=== PATIENT | female | born 1960 | race Hispanic/Latino ===

== ENCOUNTER 2019-03-21 05:49 | Inpatient (IN) | payer OTHER, MEDICARE ==
[2019-03-17 11:00] VITALS: BP 168/94
[2019-03-17 11:05] LABS: BASOPHILS % (AUTO) 0.9 % (0.0-5.0); EOSINOPHILS % (AUTO) 0.9 % (0.0-8.0); HEMATOCRIT 48.1 % (36-48); LYMPHOCYTES % (AUTO) 24.5 % (21.0-51.0); MEAN CORPUSCULAR HEMOGLOBIN 27.3 pg (27.0-33.0); MEAN CORPUSCULAR HGB CONC 33.4 g/dL (32.0-36.0); MEAN CORPUSCULAR VOLUME 81.6 fL (79-99); MONOCYTES % (AUTO) 5.7 % (3.0-13.0); PLATELET COUNT (AUTO) 373 K/uL (130-400); RED CELL DISTRIBUTION WIDTH 13.7 % (11.0-15.5); WHITE BLOOD COUNT (AUTO) 11.3 K/uL (4.8-10.8)
[2019-03-17 11:34] LABS: POTASSIUM 4.6 mmol/L (3.5-5.1)
--- NOTE | 2019-03-20 10:14 | NUR ---
LABS INFORMED WBC TO DR. SHAYNE BERRY ASST. SHE WILL INFORM DR. BELLA
--- NOTE | 2019-03-20 10:27 | NUR ---
WBC KRISTI ON PHONE. PER DR. BELLA, REDRAW CBC ON AM OF PROCEDURE.
[2019-03-21] VITALS (23 sets, daily range): BP systolic 129–168; BP diastolic 69–102
[~2019-03-21] VITALS: Ht 147.3 cm; Wt 68.9 kg
[~2019-03-21 05:49] MED LIST: AMLO10TA7 PO; AVENOVA TP; CHOL100040 PO; ENAL20TA PO; ESOM40CA54 PO; FAMO-136 PO; FLUT15.845 NS; FLUT1BLS IH; FLUT1DIS IH; HYDR12.54 PO; MELA1TAB8 PO; MONT10TA24 PO; OXYB5TAB15 PO; ROSU10TA28 PO; TIOT4MIS5 IH; TOPI100T37 PO; TRAM50TA4 PO
[2019-03-21] MEDS ORDERED: LACTATED RINGERS 1000ML 1,000 ML IV ONE (06:07)
[2019-03-21] MEDS ORDERED: CEFAZOLIN SODIUM 1 GM VIAL ONE (06:07)
[2019-03-21 06:25] LABS: HEMATOCRIT 44.2 % (36-48); MEAN CORPUSCULAR HEMOGLOBIN 27.7 pg (27.0-33.0); MEAN CORPUSCULAR HGB CONC 33.9 g/dL (32.0-36.0); MEAN CORPUSCULAR VOLUME 81.7 fL (79-99); NUCLEATED RED BLOOD CELLS 0.1 % (0.0-0.19); PLATELET COUNT (AUTO) 340 K/uL (130-400); RED BLOOD CELL COUNT(AUTO) 5.41 MIL/uL (4.00-5.50); RED CELL DISTRIBUTION WIDTH 13.4 % (11.0-15.5); WHITE BLOOD COUNT (AUTO) 10.6 K/uL (4.8-10.8)
[2019-03-21] MEDS: CEFAZOLIN SODIUM 1 GM VIAL IVP ONE ×2 (06:28→07:45)
[2019-03-21] MEDS ORDERED: SUCCINYLCHOLINE 200MG/10ML SYR ONE (07:01)
[2019-03-21] MEDS ORDERED: LIDOCAINE PF 2% 5ML ABBOJECT ONE (07:01)
[2019-03-21] MEDS ORDERED: PROPOFOL 10 MG/ML 20ML VIAL IV ONE (07:02)
[2019-03-21] MEDS ORDERED: MIDAZOLAM HCL 1 MG/ML 2ML VIAL ONE (07:02)
[2019-03-21] MEDS ORDERED: THROMBIN-JMI 20000 UNIT KIT TP ONE (07:02)
[2019-03-21] MEDS ORDERED: GLYCOPYRROLATE 1 MG/5 ML SYRINGE ONE (07:02)
[2019-03-21] MEDS ORDERED: BACITRACIN 50,000 UNIT VIAL ONE (07:02)
[2019-03-21] MEDS ORDERED: BUPIVACAINE/EPI/PF 0.5% 30ML VIAL IJ ONE (07:02)
[2019-03-21] MEDS ORDERED: DEXAMETHASONE SOD PHOSPHATE 10MG/ML 1ML VIAL ONE ×2 (07:02→07:07)
[2019-03-21] MEDS ORDERED: FENTANYL CITRATE PF 50 MCG/1 ML 2ML VIAL ONE ×3 (07:03→10:07)
[2019-03-21] MEDS ORDERED: ONDANSETRON HCL 4 MG/2 ML VIAL ONE (07:03)
[2019-03-21] MEDS ORDERED: ROCURONIUM 10MG/1ML SYR 10 MG/ML ML ONE (07:03)
[2019-03-21] MEDS ORDERED: NEOSTIGMINE 5MG/5ML SYR IV ONE (07:03)
[2019-03-21] MEDS ORDERED: MANNITOL 20% 500ML BAG 500 ML IV ONE (07:42)
[2019-03-21] MEDS ORDERED: METOCLOPRAMIDE 10 MG/2 ML VIAL ONE (09:17)
[2019-03-21] MEDS ORDERED: LIDOCAINE HCL 4% LTA SOL 4 ML VIAL ONE (09:17)
[2019-03-21] MEDS ORDERED: PEG15DRO4 OU (10:17)
[2019-03-21] MEDS ORDERED: ACET-66 PO (10:17)
[2019-03-21] MEDS ORDERED: ACETAMINOPHEN EXTRA STRENGTH 500 MG TABLET PO PRN (10:30)
[2019-03-21] MEDS ORDERED: PROMETHAZINE HCL 25 MG/ML 1ML AMPULE IM PRN (10:30)
[2019-03-21] MEDS ORDERED: MORPHINE SULFATE 2 MG/ML 1ML SYG IVP PRN (10:30)
[2019-03-21] MEDS ORDERED: SODIUM CHLORIDE 0.9% 10 ML VIAL IVP PRN (10:30)
[2019-03-21] MEDS: CEFAZOLIN SODIUM 1 GM VIAL IVP SCH ×2 (10:30→15:55)
[2019-03-21] MEDS: DEXAMETHASONE SOD PHOSPHATE 4 MG/ML 1ML VIAL IVP SCH ×3 (10:30→23:14)
[2019-03-21] MEDS: VITAMIN D3 PO SCH (10:36)
[2019-03-21] MEDS: PANTOPRAZOLE SODIUM 40 MG TABLET.DR PO SCH (10:37)
[2019-03-21] MEDS: HYDROCHLOROTHIAZIDE 25 MG TABLET PO SCH (10:38)
[2019-03-21] MEDS: ARTIFICAL TEARS SOL 15 ML OU SCH ×2 (10:39→20:49)
[2019-03-21] MEDS: FLUTICASONE PROPIONATE 50MCG/SPRAY 16 GM BOTTLE EN SCH (10:50)
[2019-03-21] MEDS: FAMOTIDINE 20MG TAB 20 MG TAB PO SCH ×2 (10:57→20:43)
[2019-03-21] MEDS: IPRATROPIUM/ALBUTEROL SULFATE 3 ML SOLUTION IH SCH ×3 (12:00→23:33)
[2019-03-21] MEDS ORDERED: IPRATROPIUM 0.5 MG/2.5 ML INH IH SCH (12:00)
[2019-03-21] MEDS: LACTATED RINGERS 1000ML 1,000 ML IV SCH ×2 (12:14→23:12)
[2019-03-21] MEDS: HYDROCODONE/ACETAMINOPHEN 5/325 MG TAB PO PRN ×3 (15:43→23:58)
[2019-03-21] MEDS: BUDESONIDE 0.5 MG/2 ML INH IH SCH (18:59)
[2019-03-21] MEDS: TRAMADOL HCL 50 MG TABLET PO SCH (20:44)
[2019-03-21] MEDS ORDERED: MELATONIN 1 MG PO SCH (21:00)
[2019-03-21] MEDS ORDERED: ATORVASTATIN CALCIUM 20 MG TABLET PO SCH (21:00)
[2019-03-21] MEDS ORDERED: MONTELUKAST SODIUM 10 MG TAB PO SCH (21:00)
[2019-03-21] MEDS ORDERED: ENALAPRIL MALEATE 10 MG TABLET PO SCH (21:00)
[2019-03-22 00:20] VITALS: BP 137/74
[2019-03-22 04:15] VITALS: BP 123/80
[2019-03-22] MEDS: DEXAMETHASONE SOD PHOSPHATE 4 MG/ML 1ML VIAL IVP SCH (04:57)
[2019-03-22] MEDS: IPRATROPIUM/ALBUTEROL SULFATE 3 ML SOLUTION IH SCH ×2 (06:51→11:18)
[2019-03-22] MEDS: HYDROCODONE/ACETAMINOPHEN 5/325 MG TAB PO PRN (06:56)
[2019-03-22] MEDS: BUDESONIDE 0.5 MG/2 ML INH IH SCH (06:59)
[2019-03-22 08:01] VITALS: BP 107/69
[2019-03-22] MEDS: FAMOTIDINE 20MG TAB 20 MG TAB PO SCH (08:16)
[2019-03-22] MEDS: PANTOPRAZOLE SODIUM 40 MG TABLET.DR PO SCH (08:16)
[2019-03-22] MEDS: HYDROCHLOROTHIAZIDE 25 MG TABLET PO SCH (08:17)
[2019-03-22] MEDS: VITAMIN D3 PO SCH (08:17)
[2019-03-22] MEDS: FLUTICASONE PROPIONATE 50MCG/SPRAY 16 GM BOTTLE EN SCH (08:17)
[2019-03-22] MEDS: ARTIFICAL TEARS SOL 15 ML OU SCH (08:17)
[2019-03-22] MEDS: TRAMADOL HCL 50 MG TABLET PO SCH (08:18)
[2019-03-22] MEDS ORDERED: OXYBUTYNIN CHLORIDE 5 MG TABLET PO SCH (09:00)
[2019-03-22] MEDS ORDERED: AMLODIPINE BESYLATE 5 MG TAB PO SCH (09:00)
[2019-03-22] MEDS ORDERED: FLUTICASONE/VILANTEROL 1 EACH BLST.W.DEV IH SCH (09:00)
--- NOTE | 2019-03-22 10:00 | NUR ---
DRESSING CHANGE REMOVED DRESSING, INCISION WITH [address] INTACT, NO REDNESS OR DRAINAGE NOTED TO SITE, CLEANED INCISION WITH BETADINE, PLACED NEW DRESSING, TOLERATED WELL.
--- NOTE | 2019-03-22 11:00 | NUR ---
PT D/C W TEACH BACK SUCESSFULLY IV REMOVED, CATHETER INTACT
== END 2019-03-22 12:38 | disposition home or self-care (01) | DRG 29 ==
LOC: DAHIP 05:49 → EDSTATUS 09:01 → 4AH 11:26
PROVIDERS: ADMIT Neurological Surgery; ATTEND Neurological Surgery
PROC: 0RG20K0 Fusion of 2 or more Cervical Vertebral Joints with Nonautologous Tissue Substitute, Anterior Approach, Anterior Column, Open Approach (ICD-10-PCS; principal; 2019-03-21 07:30)
PROC: 4A11X4G Monitoring of Peripheral Nervous Electrical Activity, Intraoperative, External Approach (ICD-10-PCS; 2019-03-21 07:30)
DX: M54.12 Radiculopathy, cervical region (principal); G99.2 Myelopathy in diseases classified elsewhere; M48.02 Spinal stenosis, cervical region; M25.78 Osteophyte, vertebrae
CPT/HCPCS: 36415; 72020; 80051; 85025; 85027; 94640; 94664; A4344; G0378; J0330; J0690; J1100; J2001; J2250; J2405; J2704; J2710; J2765; J3010; J3490; J7030; J7120

== ENCOUNTER → 2019-04-19 | Outpatient (CLI) | payer OTHER, MEDICARE ==
[~2019-04-19] MED LIST changes: +ACET-66 PO; +PEG15DRO4 OU; -TOPI100T37 PO
== END | disposition home or self-care (01) ==
LOC: OIH 08:57
PROVIDERS: ATTEND Neurological Surgery
DX: M47.812 Spondylosis without myelopathy or radiculopathy, cervical region (principal); M43.22 Fusion of spine, cervical region
CPT/HCPCS: 72040

== ENCOUNTER → 2019-12-13 | Outpatient (CLI) | payer OTHER, MEDICARE ==
[~2019-12-13] MED LIST changes: -MONT10TA24 PO; +MONT10TA26 PO
== END | disposition home or self-care (01) ==
LOC: RAH 10:01
PROVIDERS: ATTEND Internal Medicine Gastroenterology
DX: R11.2 Nausea with vomiting, unspecified (principal); R10.9 Unspecified abdominal pain; K21.9 Gastro-esophageal reflux disease without esophagitis
CPT/HCPCS: 78264; A9541

== ENCOUNTER → 2021-04-22 | Outpatient (CLI) | payer OTHER ==
[~2021-04-22] MED LIST changes: +AMLO-258 PO; -AMLO10TA7 PO; -ENAL20TA PO; +ENAL20TA18 PO; +MELA1TAB52 PO; -MELA1TAB8 PO; +MONT-39 PO; -MONT10TA26 PO
== END | disposition home or self-care (01) ==
LOC: OIH 10:35
PROVIDERS: ATTEND Internal Medicine Cardiovascular Disease
DX: Z13.6 Encounter for screening for cardiovascular disorders (principal)
CPT/HCPCS: 75571

== ENCOUNTER → 2022-07-09 | Outpatient (CLI) | payer OTHER | END | disposition home or self-care (01) | LOC: RAH 12:34 | PROVIDERS: ATTEND Internal Medicine Cardiovascular Disease | DX: Z13.6 Encounter for screening for cardiovascular disorders (principal) | CPT/HCPCS: 75571 ==

== ENCOUNTER → 2022-08-06 | Outpatient (CLI) | payer OTHER, MEDICARE | END | disposition home or self-care (01) | LOC: SHCH 07:42 | PROVIDERS: ATTEND Internal Medicine Cardiovascular Disease | DX: I10 Essential (primary) hypertension (principal); E78.5 Hyperlipidemia, unspecified | CPT/HCPCS: 93975 ==

== ENCOUNTER → 2024-11-14 | Outpatient (CLI) | payer OTHER, MEDICARE ==
[~2024-11-14] MED LIST changes: +ENAL-91 PO; -ENAL20TA18 PO; -ESOM40CA54 PO; +ESOM40CA66 PO; -OXYB5TAB15 PO; +OXYB5TAB20 PO; -ROSU10TA28 PO; +ROSU10TA72 PO
[2024-11-14] MEDS: REGADENOSON 0.4 MG/5 ML PF SYG IVP ONE (10:12)
== END | disposition home or self-care (01) ==
LOC: SHCH 07:58
PROVIDERS: ATTEND Internal Medicine Cardiovascular Disease
DX: R06.02 Shortness of breath (principal); R06.00 Dyspnea, unspecified
CPT/HCPCS: 78452; 93017; J2785; A9500 ×2